=== PATIENT | female | born 1990 | race Caucasian/White ===

== ENCOUNTER 2016-11-08 10:39 | Emergency (ER) | payer OTHER ==
[~2016-11-08] VITALS: Ht 154.9 cm; Wt 80.0 kg
[~2016-11-08 10:39] MED LIST: DOCO200C5 PO
[2016-11-08 10:45] VITALS: Ht 154.9 cm; Wt 80.0 kg
[2016-11-08] MEDS ORDERED: DOXY100T20 PO (11:33)
[2016-11-08] MEDS ORDERED: OFLO5DRO7 RIGHT EAR (11:34)
[2016-11-08] MEDS ORDERED: IBUP-1542 PO (11:34)
--- NOTE | 2016-11-08 11:39 | ERD ---
ER Documentation Chief Complaint Date/Time DATE: 11/08/16 TIME: 11:38 Chief Complaint RIGHT EARACHE X 2DAYS HPI This 26-year-old female presents with right ear pain for last 2 days. She feels like she got some water which she removed and the pain is in the next right ear anterior to the external auditory canal patient has a fevers, vomiting, center the chest pain or congestion or bleeding or discharge. ROS All systems reviewed and are negative except as per history of present illness. Medications Home Meds Active Scripts Ibuprofen* (Motrin*) 600 Mg Tab, 600 MG PO Q6, #15 TAB Prov:PHILLY BENTLEY MD 11/08/16 Ofloxacin Otic (Ofloxacin Otic) 5 Ml Drops, 5 DROP RIGHT EAR BID for 7 Days, #1 BOTTLE Start 11/09/2016 Prov:PHILLY BENTLEY MD 11/08/16 Doxycycline Hyclate* (Doxycycline Hyclate*) 100 Mg Tablet.dr, 100 MG PO BID for 7 Days, TAB Prov:PHILLY BENTLEY MD 11/08/16 Reported Medications Docosahexanoic Acid ( DHA) 200 Mg Capsule, 200 MG PO 05/27/13 Allergies Allergies: Coded Allergies: No Known Allergy (Unverified , 05/27/13) PMhx/Soc History of Surgery: No Anesthesia Reaction: No Hx Neurological Disorder: No Hx Respiratory Disorders: No Hx Cardiac Disorders: No Hx Psychiatric Problems: No Hx Miscellaneous Medical Probl: No Hx Alcohol Use: No Hx Substance Use: No Hx Tobacco Use: No Smoking Status: Never smoker Physical Exam Vitals Vital Signs Date Time Temp Pulse Resp B/P Pulse Ox O2 Delivery O2 Flow Rate FiO2 11/08/16 10:45 97.4 81 18 165/89 98 Physical Exam Const: [] Alert, not ill-appearing. Head: Atraumatic Eyes: Normal Conjunctiva ENT: Normal External Ears, Nose and Mouth. Mild pain with passive range of motion of the right ear. There is decreased stamina external auditory canal with some redness in a state. TMs normal. Neck: Full range of motion..~ No meningismus. Resp: Clear to auscultation bilaterally Cardio: Regular rate and rhythm, no murmurs Abd: Soft, non tender, non distended. Normal bowel sounds Skin: No petechiae or rashes Back: No midline or flank tenderness Ext: No cyanosis, or edema Neur: Awake and alert Psych: Normal Mood and Affect Procedures/MDM Patient presents with signs and symptoms right otitis externa possibly flea Flexeril the ear canal. She'll be treated with doxycycline and Robitussin otic suspension and ibuprofen.. There is no evidence of mastoiditis, cellulitis, meningitis, additional emergent causes of presenting complaints. Departure Diagnosis: Primary Impression: Otitis externa Otitis externa type: unspecified type Laterality: right Chronicity: acute Qualified Code: H60.501 - Acute otitis externa of right ear, unspecified type Additional Impression: Right ear pain Condition: Stable Patient Instructions: External Ear Infection (Adult) Additional Instructions: Recheck for new or worsening symptoms or with primary care doctor. PHILLY BENTLEY MD Nov 08, 2016 11:39
== END 2016-11-08 11:48 | disposition home or self-care (01) ==
LOC: FTE 10:39
DX: H60.501 Unspecified acute noninfective otitis externa, right ear (principal)
CPT/HCPCS: 99283